=== PATIENT | male | born 1955 | race Two or more races ===

== ENCOUNTER 2019-12-31 15:20 | Emergency (ER) | payer MEDICAID ==
[~2019-12-31] VITALS: Ht 165.1 cm; Wt 65.8 kg
[2019-12-31 15:34] VITALS: BP 138/84
--- NOTE | 2019-12-31 18:10 | Emergency Room Report ---
History of Present Illness General Chief Complaint: Earache Source: Patient Present Illness HPI 64-year-old male presents for evaluation. States he has a piece of Q-tip stuck in his left ear since last night. Denies pain. Denies any difficulty hearing. No other aggravating relieving factors. 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 Patient History Past Medical History: none Past Surgical History: none Pertinent Family History: none Social History: Denies: smoking, alcohol use, drug use Immunizations: UTD Reviewed Nursing Documentation: PMH: Agreed; PSxH: Agreed Nursing Documentation-PMH Past Medical History: No Stated History Review of Systems All Other Systems: negative except mentioned in HPI Physical Exam Vital Signs Date Time Temp Pulse Resp B/P (MAP) Pulse Ox O2 Delivery O2 Flow Rate FiO2 12/31/19 15:31 98.2 61 17 138/84 (102) 98 Room Air Sp02 EP Interpretation: reviewed, normal General Appearance: no apparent distress, alert, GCS 15, non-toxic Head: normocephalic Eyes: bilateral eye normal inspection, bilateral eye PERRL ENT: hearing grossly normal, normal pharynx, no angioedema, normal voice, other - White cotton foreign body in left ear canal Neck: normal inspection Respiratory: normal inspection Cardiovascular #1: normal inspection Gastrointestinal: normal inspection Rectal: deferred Genitourinary: no CVA tenderness Musculoskeletal: normal inspection Neurologic: alert, motor strength/tone normal, oriented x3, sensory intact, responsive, speech normal Psychiatric: normal inspection Skin: no rash Lymphatic: normal inspection Procedures Additional Procedure Procedure Narrative Patient placed in the decubitus position on stretcher. Using otoscope I was able to visualize the foreign body in the ear canal. Using alligator forceps under direct visualization I am able to successfully remove the foreign body. Repeat otoscope visualization confirms foreign body is removed l Medical Decision Making Diagnostic Impression: Primary Impression: Foreign body in ear Qualified Codes: T16.2XXA - Foreign body in left ear, initial encounter ER Course 64 yo m presents to ED c/o sensation of foreign body in l ear Differential-foreign body, otitis media, otitis externa Patient placed on stretcher. After initial history, physical exam reveals male in no acute distress. On otoscopic exam there is evidence of a cotton swab in the left ear canal Using alligator forceps I am able to remove the cotton swab without complication. On repeat otoscopic exam no evidence of foreign body. Discussed findings with patient. Patient is safe for discharge Diagnosis-foreign body in ear Stable discharged to home. Followup with PMD. Return to ED if symptoms recur or worsen stable discharged to home with prescription for amoxicillin. Followup with PMD. Return to ED if symptoms recur or worsen Last Vital Signs Date Time Temp Pulse Resp B/P (MAP) Pulse Ox O2 Delivery O2 Flow Rate FiO2 12/31/19 15:43 98.2 61 17 138/84 98 Room Air Status: improved Disposition: HOME, SELF-CARE Condition: Stable Referrals: [facility] Patient Instructions: Ear Foreign Body, [id number]-[id number] Caio Call MD Dec 31, 2019 18:10
== END 2019-12-31 15:50 | disposition home or self-care (01) ==
LOC: EMR 15:44
DX: T16.2XXA Foreign body in left ear, initial encounter (principal); X58.XXXA Exposure to other specified factors, initial encounter; Y92.9 Unspecified place or not applicable
CPT/HCPCS: 69200; Z7502; 99281; 99282